=== PATIENT | male | born 1975 | race Caucasian/White ===

== ENCOUNTER → 2018-03-25 | Outpatient (CLI) | payer OTHER ==
[~2018-03-25] MED LIST: OMNIPAQUE 350 MG/ML, 150 ML BOTTLE ONE
== END | disposition home or self-care (01) ==
LOC: CFH 09:25
PROVIDERS: ATTEND Anesthesiology
DX: K57.30 Diverticulosis of large intestine without perforation or abscess without bleeding (principal)
CPT/HCPCS: 74178; 82565; Q9967

== ENCOUNTER 2018-06-17 06:19 | Day surgery (SDC) | payer OTHER ==
[~2018-06-17] VITALS: Ht 175.3 cm; Wt 96.4 kg
[~2018-06-17 06:19] MED LIST changes: +ALLO100T30 PO; +LISI-170 PO; -OMNIPAQUE 350 MG/ML, 150 ML BOTTLE ONE
[2018-06-17 06:58] VITALS: BP 119/87
[2018-06-17] MEDS ORDERED: LACTATED RINGERS 1,000 ML IV SCH (07:00)
[2018-06-17] MEDS ORDERED: PROPOFOL 10 MG/ML, 50ML ONE (08:01)
== END 2018-06-17 10:00 | disposition home or self-care (01) ==
LOC: OUT 06:19
PROVIDERS: ATTEND Colon & Rectal Surgery
DX: K57.92 Diverticulitis of intestine, part unspecified, without perforation or abscess without bleeding (principal); N32.1 Vesicointestinal fistula; K63.2 Fistula of intestine; M10.9 Gout, unspecified; F17.210 Nicotine dependence, cigarettes, uncomplicated; I10 Essential (primary) hypertension; Z72.89 Other problems related to lifestyle
CPT/HCPCS: 45330; J2704; J7120

== ENCOUNTER 2018-06-18 06:08 | Inpatient (IN) | payer OTHER ==
[2018-06-16 10:06] LABS: BASOPHILS # (AUTO) 0.05 x10^3/uL (0-0.1); BASOPHILS % (AUTO) 1 % (0-1); EOSINOPHILS % (AUTO) 1 % (1-7); LYMPHOCYTES # (AUTO) 2.53 x10^3/uL (1-3.4); LYMPHOCYTES % (AUTO) 28 % (22-44); MD NO; MEAN CORPUSCULAR HGB CONC 32.6 g/dL (33.2-36.2); MEAN CORPUSCULAR VOLUME 85.9 fL (81-97); MEAN PLATELET VOLUME 9.3 fL (7.4-10.4); MONOCYTES # (AUTO) 0.93 x10^3/uL (0.2-0.8); MONOCYTES % (AUTO) 10 % (2-9); NEUTROPHILS # (AUTO) 5.45 x10^3/uL (1.8-6.8); NEUTROPHILS % (AUTO) 60 % (42-75); PLATELET COUNT 192 x10^3/uL (130-400); RED BLOOD COUNT 6.15 x10^6/uL (4.38-5.82); RED CELL DISTRIBUTION WIDTH 13.6 % (9.4-14.8)
[2018-06-16 10:12] LABS: ALBUMIN 3.7 g/dL (3.4-5.0); ANION GAP 6 mmol/L (5-15); CALCIUM 10.3 mg/dL (8.5-10.1); CHLORIDE 103 mmol/L (98-107)
[2018-06-16 10:16] LABS: ALANINE AMINOTRANSFERASE 59 U/L (12-78); ALKALINE PHOSPHATASE 84 U/L (45-117); BILIRUBIN,TOTAL 0.4 mg/dL (0.2-1.0); CREATININE 0.91 mg/dL (0.7-1.3); TOTAL PROTEIN 8.5 g/dL (6.4-8.2)
[~2018-06-18] VITALS: Ht 175.3 cm; Wt 96.0 kg
[2018-06-18] MEDS ORDERED: LACTATED RINGERS 1,000 ML IV SCH ×2 (06:25→13:30)
[2018-06-18 06:54] VITALS: BP 131/92
[2018-06-18] MEDS ORDERED: OxyconTIN ER 10 MG TAB.ER PO ONE (07:00)
[2018-06-18] MEDS ORDERED: FAMOTIDINE 20 MG TABLET PO ONE (07:00)
[2018-06-18] MEDS ORDERED: ACETAMINOPHEN 500 MG TABLET PO ONE (07:00)
[2018-06-18] MEDS ORDERED: GABAPENTIN 300 MG CAPSULE PO ONE (07:00)
[2018-06-18] MEDS ORDERED: MIDAZOLAM 1 MG/ML, 2ML ONE (07:01)
[2018-06-18] MEDS ORDERED: FENTANYL PF 250 MCG/5ML ONE (07:01)
[2018-06-18] MEDS ORDERED: ROCURONIUM 10MG/ML,5ML ONE ×2 (07:02→10:00)
[2018-06-18] MEDS ORDERED: DEXAMETHASONE 4 MG/ML, 1ML ONE (07:02)
[2018-06-18] MEDS ORDERED: ONDANSETRON 2MG/ML, 2ML ONE (07:02)
[2018-06-18] MEDS ORDERED: PROPOFOL 10 MG/ML, 20ML ONE (07:02)
[2018-06-18] MEDS ORDERED: INDOCYANINE GREEN 25 MG VIAL ONE (07:13)
[2018-06-18] MEDS ORDERED: FLUORESCEIN SODIUM 500 MG/5 ML ONE (07:13)
[2018-06-18] MEDS ORDERED: BUPIVACAINE/EPI 0.5% 1:200K ONE (07:13)
[2018-06-18] MEDS ORDERED: ONDANSETRON 2MG/ML, 2ML IV PRN ×2 (09:30→13:30)
[2018-06-18] MEDS ORDERED: hydrALAzine 20 MG/ML, 1ML IV PRN (09:30)
[2018-06-18] MEDS ORDERED: LABETALOL 5MG/ML, 20ML IV PRN (09:30)
[2018-06-18] MEDS ORDERED: FENTANYL PF 100 MCG/2ML IV PRN (09:30)
[2018-06-18] MEDS ORDERED: OXYcodone 5 MG/5 ML ORAL.SOL UDC PO PRN (09:30)
[2018-06-18] MEDS ORDERED: MEPERIDINE/PF 25MG/0.5ML IVPush PRN (09:30)
[2018-06-18] MEDS ORDERED: PROMETHAZINE 25 MG/ML, 1ML IV PRN (09:30)
[2018-06-18] MEDS ORDERED: METOPROLOL 1 MG/ML, 5ML IV PRN (09:30)
[2018-06-18] MEDS ORDERED: NEOSTIGMINE 1 MG/ML, 10ML ONE (10:42)
[2018-06-18] MEDS ORDERED: GLYCOPYRROLATE 0.2MG/1ML, 5ML ONE (10:42)
[2018-06-18] MEDS ORDERED: FENTANYL PF 100 MCG/2ML ONE ×2 (10:46→11:23)
[2018-06-18] MEDS ORDERED: hydrALAzine 20 MG/ML, 1ML ONE (10:51)
[2018-06-18] MEDS ORDERED: HYDROmorphone 1 MG/ML, 1ML VIAL ONE (11:23)
[2018-06-18] MEDS: HYDROmorphone 2 MG/ML, 1ML IVPush PRN ×2 (11:38→11:52)
[2018-06-18 12:41] VITALS: BP 138/93
[2018-06-18] MEDS ORDERED: HALOPERIDOL 5 MG/ML IVPush PRN (13:30)
[2018-06-18] MEDS ORDERED: CALCIUM CARBONATE 500 MG TAB.CHEW PO PRN (13:30)
[2018-06-18] MEDS ORDERED: DEXAMETHASONE 4 MG/ML, 1ML IVPush PRN (13:30)
[2018-06-18] MEDS ORDERED: DIPHENHYDRAMINE 50 MG/ML, 1ML IVPush PRN (13:30)
[2018-06-18] MEDS ORDERED: DIPHENHYDRAMINE 25 MG CAPSULE PO PRN (13:30)
[2018-06-18] MEDS ORDERED: SCOPOLAMINE PATCH, 1.5MG PATCH.TD72 TD PRN (13:30)
[2018-06-18] MEDS ORDERED: OXYcodone IR 5MG TABLET PO PRN (13:30)
[2018-06-18] MEDS: KETOROLAC 30 MG/1 ML IVPush SCH ×2 (13:30→20:04)
[2018-06-18] MEDS ORDERED: LORazepam 2 MG/ML, 1ML IVPush PRN (13:30)
[2018-06-18] MEDS ORDERED: LORazepam 1MG TABLET PO PRN (13:30)
[2018-06-18] MEDS ORDERED: TRAZODONE 50MG TABLET PO PRN (13:30)
[2018-06-18] MEDS ORDERED: MORPHINE SULFATE 4 MG/ML, 1ML IVPush PRN (13:30)
[2018-06-18] MEDS: ACETAMINOPHEN 500 MG TABLET PO SCH ×2 (13:30→20:04)
[2018-06-18] MEDS: PIPERACILLIN/TAZO/PMX 3.375GM 50 ML IV SCH ×2 (16:09→20:04)
[2018-06-18 19:59] VITALS: BP 142/95
[2018-06-18] MEDS: LISINOPRIL 20 MG TABLET PO SCH (20:05)
[2018-06-19 00:06] VITALS: BP 125/77
[2018-06-19] MEDS: KETOROLAC 30 MG/1 ML IVPush SCH ×4 (02:32→20:52)
[2018-06-19] MEDS: PIPERACILLIN/TAZO/PMX 3.375GM 50 ML IV SCH ×4 (02:32→20:52)
[2018-06-19] MEDS: ACETAMINOPHEN 500 MG TABLET PO SCH ×4 (02:32→20:52)
[2018-06-19 04:01] LABS: BASOPHILS # (AUTO) 0.04 x10^3/uL (0-0.1); BASOPHILS % (AUTO) 0 % (0-1); EOSINOPHILS # (AUTO) 0.04 x10^3/uL (0-0.4); EOSINOPHILS % (AUTO) 0 % (1-7); LYMPHOCYTES # (AUTO) 2.11 x10^3/uL (1-3.4); LYMPHOCYTES % (AUTO) 16 % (22-44); MD NO; MEAN CORPUSCULAR HEMOGLOBIN 28.4 pg (27.5-34.5); MEAN CORPUSCULAR HGB CONC 32.6 g/dL (33.2-36.2); MEAN CORPUSCULAR VOLUME 87.2 fL (81-97); MEAN PLATELET VOLUME 9.7 fL (7.4-10.4); MONOCYTES # (AUTO) 0.94 x10^3/uL (0.2-0.8); MONOCYTES % (AUTO) 7 % (2-9); NEUTROPHILS # (AUTO) 10.01 x10^3/uL (1.8-6.8); NEUTROPHILS % (AUTO) 76 % (42-75); PLATELET COUNT 174 x10^3/uL (130-400); RED BLOOD COUNT 5.19 x10^6/uL (4.38-5.82); RED CELL DISTRIBUTION WIDTH 13.7 % (9.4-14.8)
[2018-06-19 04:03] LABS: ANION GAP 7 mmol/L (5-15); CALCIUM 7.3 mg/dL (8.5-10.1); CHLORIDE 106 mmol/L (98-107)
[2018-06-19 04:05] LABS: CREATININE 1.15 mg/dL (0.7-1.3)
[2018-06-19 04:16] VITALS: BP 130/76
[2018-06-19 07:31] VITALS: BP 121/85
[2018-06-19] MEDS: LISINOPRIL 20 MG TABLET PO SCH ×2 (08:55→20:51)
[2018-06-19] MEDS: ALLOPURINOL 100 MG TABLET PO SCH (08:57)
[2018-06-19] MEDS: ENOXAPARIN 40 MG/0.4 ML SQ SCH (09:01)
[2018-06-19] MEDS ORDERED: MAGNESIUM SULFATE PMX 2GM/50ML 50 ML IVPB ONE (10:00)
[2018-06-19] MEDS ORDERED: OXYC-302 PO (10:21)
[2018-06-19] MEDS ORDERED: AMOX1TAB64 PO (10:21)
[2018-06-19 14:09] VITALS: BP 137/87
[2018-06-19 21:05] VITALS: BP 138/81
[2018-06-20] MEDS: KETOROLAC 30 MG/1 ML IVPush SCH ×2 (02:30→07:50)
[2018-06-20] MEDS: ACETAMINOPHEN 500 MG TABLET PO SCH ×2 (02:30→07:42)
[2018-06-20] MEDS: PIPERACILLIN/TAZO/PMX 3.375GM 50 ML IV SCH ×2 (02:30→08:38)
[2018-06-20 02:55] VITALS: BP 150/91
[2018-06-20 04:37] LABS: BASOPHILS # (AUTO) 0.03 x10^3/uL (0-0.1); BASOPHILS % (AUTO) 0 % (0-1); CALCIUM 7.8 mg/dL (8.5-10.1); CHLORIDE 109 mmol/L (98-107); EOSINOPHILS # (AUTO) 0.11 x10^3/uL (0-0.4); EOSINOPHILS % (AUTO) 1 % (1-7); LYMPHOCYTES # (AUTO) 2.15 x10^3/uL (1-3.4); LYMPHOCYTES % (AUTO) 21 % (22-44); MD NO; MEAN CORPUSCULAR HEMOGLOBIN 29.1 pg (27.5-34.5); MEAN CORPUSCULAR HGB CONC 33.6 g/dL (33.2-36.2); MEAN CORPUSCULAR VOLUME 86.4 fL (81-97); MEAN PLATELET VOLUME 9.6 fL (7.4-10.4); MONOCYTES # (AUTO) 0.69 x10^3/uL (0.2-0.8); MONOCYTES % (AUTO) 7 % (2-9); NEUTROPHILS # (AUTO) 7.24 x10^3/uL (1.8-6.8); NEUTROPHILS % (AUTO) 71 % (42-75); PLATELET COUNT 143 x10^3/uL (130-400); RED BLOOD COUNT 5.04 x10^6/uL (4.38-5.82); RED CELL DISTRIBUTION WIDTH 14.1 % (9.4-14.8)
[2018-06-20 04:40] LABS: ANION GAP 6 mmol/L (5-15); CREATININE 0.94 mg/dL (0.7-1.3)
[2018-06-20 07:24] VITALS: BP 157/111
[2018-06-20] MEDS: ALLOPURINOL 100 MG TABLET PO SCH (07:41)
[2018-06-20] MEDS: LISINOPRIL 20 MG TABLET PO SCH (07:43)
[2018-06-20] MEDS: ENOXAPARIN 40 MG/0.4 ML SQ SCH (07:44)
== END 2018-06-20 13:43 | disposition home or self-care (01) | DRG 330 ==
LOC: ORIP 06:08 → EDSTATUS 07:30 → 4NOR 12:32
PROVIDERS: ADMIT Colon & Rectal Surgery; ATTEND Colon & Rectal Surgery
PROC: 0DBN4ZZ Excision of Sigmoid Colon, Percutaneous Endoscopic Approach (ICD-10-PCS; 2018-06-18)
PROC: 8E0W4CZ Robotic Assisted Procedure of Trunk Region, Percutaneous Endoscopic Approach (ICD-10-PCS; 2018-06-18)
PROC: 0DBP4ZZ Excision of Rectum, Percutaneous Endoscopic Approach (ICD-10-PCS; principal; 2018-06-18 07:30)
DX: K57.32 Diverticulitis of large intestine without perforation or abscess without bleeding (principal); N32.1 Vesicointestinal fistula; E66.9 Obesity, unspecified; Z68.31 Body mass index [BMI] 31.0-31.9, adult; I10 Essential (primary) hypertension; G47.33 Obstructive sleep apnea (adult) (pediatric); M10.9 Gout, unspecified; F17.200 Nicotine dependence, unspecified, uncomplicated; Z82.49 Family history of ischemic heart disease and other diseases of the circulatory system; Z83.3 Family history of diabetes mellitus; Z88.0 Allergy status to penicillin
CPT/HCPCS: 36415; J3490; 80048; 80053; 83735; 85025; 86850; 86900; 88305; 88307; 93005; G0378; J1100; J1170; J1650; J1885; J2250; J2405; J2543; J2704; J2710; J3010; J0360; J3475; J7120; Q0163

== ENCOUNTER 2019-05-14 16:13 | Outpatient (CLI) | payer OTHER ==
[~2019-05-14 16:13] MED LIST changes: +AMOX1TAB64 PO; +OXYC-302 PO
== END 2019-05-14 23:59 | disposition home or self-care (01) ==
LOC: RAD 16:13
PROVIDERS: ATTEND Family Medicine
DX: F17.200 Nicotine dependence, unspecified, uncomplicated (principal)
CPT/HCPCS: 71046

== ENCOUNTER 2019-05-24 10:41 | Inpatient (IN) | payer OTHER ==
[~2019-05-24] VITALS: Ht 175.3 cm; Wt 103.6 kg
--- NOTE | 2019-05-24 10:54 | NUR ---
PATIENT WENT TO HIS MD BUTT TODAY FOR A GENERAL CHECK UP AND MD SENT HIM HERE FOR HYPOTENTION, FEVER, BODY ACHES, AND SOB. AFEBRILE BUT TOOK IBUPROFEN AT MD. HYPOTENSIVE, WEAK. ROOMED IMMIDIATELY NOTIFIED .
--- NOTE | 2019-05-24 11:10 | NUR ---
LATE ENTRY: PT SENT SENT FROM FOR HYPOTENSION. PT HYPOTENSIVE IN TRIAGE. IS CURRENTLY BEING TREATED FOR UTI WITH ABX. 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 PT SAYS THAT HIS "URINE SMELLS LIKE POOP SOMETIMES". EKG DONE, UA SENT, LABS DRAWN. MD BEDSIDE. BOLUS LIETS OF NS INFUSING AT THIS TIME.
[2019-05-24] MEDS ORDERED: SODIUM CHLORIDE FLUSH 10ML SYR IVF ONE (11:30)
[2019-05-24] MEDS ORDERED: SODIUM CHLORIDE 0.9% 1,000ML IVBOLUS ONE ×3 (11:30→13:00)
--- NOTE | 2019-05-24 11:48 | NUR ---
FIRST BOLUS COMPLETE. BP HAS IMPROVED. MD NOTIFIED. SECOND BOLUS INFUSING AT THIS TIME
[2019-05-24 11:54] LABS: MEAN CORPUSCULAR HEMOGLOBIN 29.2 pg (27.5-34.5); MEAN CORPUSCULAR HGB CONC 33.6 g/dL (33.2-36.2); MEAN CORPUSCULAR VOLUME 86.9 fL (81-97); MEAN PLATELET VOLUME 9.8 fL (7.4-10.4); PLATELET COUNT 190 x10^3/uL (130-400); RED BLOOD COUNT 5.47 x10^6/uL (4.38-5.82); RED CELL DISTRIBUTION WIDTH 15.2 % (9.4-14.8)
[2019-05-24 12:03] LABS: MICROSCOPIC INDICATED
[2019-05-24 12:04] LABS: CULTURE INDICATED? YES
[2019-05-24 12:05] LABS: ALANINE AMINOTRANSFERASE 57 U/L (12-78); ALBUMIN 2.7 g/dL (3.4-5.0); ANION GAP 12 mmol/L (5-15); CALCIUM 8.7 mg/dL (8.5-10.1); CHLORIDE 95 mmol/L (98-107); CREATININE 1.74 mg/dL (0.7-1.3)
[2019-05-24 12:08] LABS: ALKALINE PHOSPHATASE 175 U/L (45-117); CREATINE KINASE, TOTAL 220 U/L (39-308); TOTAL PROTEIN 7.1 g/dL (6.4-8.2)
[2019-05-24 12:29] LABS: MD YES
[2019-05-24 12:31] LABS: <RBC MORPHOLOGY> NORMAL; BANDS%(MANUAL) 45 % (0-7); LYMPH#(MANUAL) 0.45 x10^3/uL (1-3.4); LYMPHS% (MANUAL) 3 % (22-44); METAMYELOCYTES% (MANUAL) 2 % (0-1); MONOS#(MANUAL) 0.15 x10^3/uL (0.3-2.7); MONOS% (MANUAL) 1 % (2-9); SEGS% (MANUAL) 49 % (42-75)
[2019-05-24 12:32] LABS: <PLATELET ESTIMATE> ADEQUATE; <PLT MORPHOLOGY> NORMAL PLT MORPH; PMNS WITH VACUOLES 1+; TOXIC GRAN 1+
--- NOTE | 2019-05-24 12:49 | NUR ---
PT REMAINIG HYPOTENSIVE AFTER 2 LITERS. NOTIFIED. 3RD LITER IS INFUSING NOW.
--- NOTE | 2019-05-24 12:49 | NUR ---
CENTRAL LINE CART HAS BEEN PLACED OUTSDIE OF ROOM
[2019-05-24] MEDS ORDERED: VANCOMYCIN PER PHARMACY MC PRN ×2 (13:00→16:00)
[2019-05-24] MEDS ORDERED: ERTAPENEM 1 GM in SODIUM CHLORIDE 0.9% 50 ML IV SCH (13:00)
[2019-05-24] MEDS ORDERED: PHARMACOKINETIC MONITORING MC PRN (13:30)
[2019-05-24] MEDS ORDERED: PHARMACOKINETIC CONSULTATION MC ONE (13:30)
--- NOTE | 2019-05-24 13:44 | NUR ---
PT RESTING IN [facility]. PT EDCUATED ON PLAN OF CARE.
--- NOTE | 2019-05-24 13:55 | NUR ---
PT TP CT AT THIS TIME
[2019-05-24] MEDS: VANCOMYCIN 2,000 MG in SODIUM CHLORIDE 0.9% 500 ML IV SCH (14:10)
[2019-05-24] MEDS ORDERED: OMNIPAQUE 350 MG/ML, 100ML BOTTLE ONE (14:11)
[2019-05-24] MEDS ORDERED: DIAZEPAM 5 MG/ML, 2ML IV ONE (14:30)
[2019-05-24] MEDS ORDERED: MAGNESIUM SULFATE PMX 4GM/100M 100 ML IV ONE (14:30)
[2019-05-24] MEDS ORDERED: NOREPINEPHRINE 8 MG in SODIUM CHLORIDE 0.9% 242 ML IV PRN ×2 (14:30→16:00)
[2019-05-24] MEDS ORDERED: HYDROCORTISONE 100 MG INJ. IVPush ONE (14:30)
[2019-05-24] MEDS ORDERED: MAGNESIUM SULFATE PMX 2GM/50ML 50 ML IV ONE (14:30)
[2019-05-24] MEDS ORDERED: FENTANYL PF 100 MCG/2ML ONE (14:44)
[2019-05-24 15:15] LABS: FREE T4 (FREE THYROXINE) 1.4 ng/dL (0.76-1.46)
[2019-05-24] MEDS ORDERED: FENTANYL PF 100 MCG/2ML IVPush ONE (15:30)
--- NOTE | 2019-05-24 15:52 | NUR ---
PT RESTING IN [facility]. CENTRAL LINE HAS BEEN INSERTED. BP MEDICATION INFUSING. IMRPOVEMENT IN BP. AWAITING ROOM FOR ADMIT
[2019-05-24] MEDS: SODIUM CHLORIDE 0.9% 1,000 ML IV SCH ×2 (15:57→21:13)
[2019-05-24] MEDS ORDERED: ACETAMINOPHEN 325 MG TABLET PO PRN (16:00)
[2019-05-24] MEDS ORDERED: ONDANSETRON 2MG/ML, 2ML IVPush PRN (16:00)
[2019-05-24] MEDS ORDERED: POLYETHYLENE GLYCOL 17 GM PACKET PO PRN (16:00)
[2019-05-24] MEDS ORDERED: BISACODYL 10 MG SUPP PR PRN (16:00)
[2019-05-24] MEDS: MEROPENEM 1 GM in SODIUM CHLORIDE 0.9% 100 ML IV SCH ×2 (17:33→22:26)
[2019-05-24 18:38] LABS: RAPID INFLUENZA A Negative (Negative); RAPID INFLUENZA B Negative (Negative)
[2019-05-24] MEDS: ENOXAPARIN 40 MG/0.4 ML SQ SCH (19:42)
[2019-05-25] MEDS: SODIUM CHLORIDE 0.9% 1,000 ML IV SCH ×4 (03:53→23:14)
[2019-05-25 04:00] VITALS: BP 127/79
[2019-05-25 04:29] LABS: ANION GAP 8 mmol/L (5-15); CALCIUM 7.6 mg/dL (8.5-10.1); CHLORIDE 108 mmol/L (98-107)
[2019-05-25 04:31] LABS: MEAN CORPUSCULAR HEMOGLOBIN 28.7 pg (27.5-34.5); MEAN CORPUSCULAR HGB CONC 33.4 g/dL (33.2-36.2); MEAN CORPUSCULAR VOLUME 85.8 fL (81-97); MEAN PLATELET VOLUME 9.5 fL (7.4-10.4); PLATELET COUNT 192 x10^3/uL (130-400); RED BLOOD COUNT 4.43 x10^6/uL (4.38-5.82); RED CELL DISTRIBUTION WIDTH 15.5 % (9.4-14.8)
[2019-05-25 04:32] LABS: ALANINE AMINOTRANSFERASE 43 U/L (12-78); ALKALINE PHOSPHATASE 120 U/L (45-117); BILIRUBIN,TOTAL 1.3 mg/dL (0.2-1.0); TOTAL PROTEIN 5.9 g/dL (6.4-8.2)
[2019-05-25] MEDS: MEROPENEM 1 GM in SODIUM CHLORIDE 0.9% 100 ML IV SCH ×3 (05:52→22:30)
[2019-05-25 06:17] LABS: MD YES
[2019-05-25 06:18] LABS: BAND#(MANUAL) 1.39 x10^3/uL; BANDS%(MANUAL) 11 % (0-7); LYMPH#(MANUAL) 1.51 x10^3/uL (1-3.4); LYMPHS% (MANUAL) 12 % (22-44); MONOS#(MANUAL) 0.13 x10^3/uL (0.3-2.7); MONOS% (MANUAL) 1 % (2-9); SEG#(MANUAL) 9.58 x10^3/uL (1.8-6.8); SEGS% (MANUAL) 76 % (42-75)
[2019-05-25 06:19] LABS: <PLATELET ESTIMATE> ADEQUATE; <PLT MORPHOLOGY> NORMAL PLT MORPH; <RBC MORPHOLOGY> NORMAL
[2019-05-25] MEDS: SENNA/DOCUSATE TABLET PO SCH (08:04)
[2019-05-25] MEDS: THIAMINE 200 MG in SODIUM CHLORIDE 0.9% 50 ML IV SCH (08:25)
[2019-05-25] MEDS ORDERED: CHLORDIAZEPOXIDE 25 MG CAPSULE ONE (12:22)
[2019-05-25] MEDS: CHLORDIAZEPOXIDE 25 MG CAPSULE PO SCH ×3 (12:28→21:20)
[2019-05-25] MEDS ORDERED: LORazepam 2 MG/ML, 1ML IVPush PRN (12:30)
[2019-05-25] MEDS: VANCOMYCIN 2,000 MG in SODIUM CHLORIDE 0.9% 500 ML IV SCH (13:17)
[2019-05-25] MEDS: ENOXAPARIN 40 MG/0.4 ML SQ SCH (20:01)
[2019-05-26] MEDS: VANCOMYCIN 2,000 MG in SODIUM CHLORIDE 0.9% 500 ML IV SCH ×2 (00:54→12:55)
[2019-05-26 04:00] VITALS: BP 146/96
[2019-05-26] MEDS: MEROPENEM 1 GM in SODIUM CHLORIDE 0.9% 100 ML IV SCH (05:44)
[2019-05-26] MEDS: CHLORDIAZEPOXIDE 25 MG CAPSULE PO SCH ×3 (08:29→21:20)
[2019-05-26] MEDS: THIAMINE 200 MG in SODIUM CHLORIDE 0.9% 50 ML IV SCH (08:29)
[2019-05-26] MEDS: SENNA/DOCUSATE TABLET PO SCH (08:29)
[2019-05-26] MEDS ORDERED: OMNIPAQUE 350 MG/ML, 75ML BOTTLE ONE (09:43)
[2019-05-26 14:00] VITALS: BP 146/89
[2019-05-26] MEDS ORDERED: LEVOFLOXACIN 750 MG TABLET PO SCH (15:00)
[2019-05-26] MEDS: ENOXAPARIN 40 MG/0.4 ML SQ SCH (17:04)
[2019-05-26 19:12] VITALS: BP 111/78
[2019-05-27 01:02] VITALS: BP 134/80
[2019-05-27 06:50] VITALS: BP 158/72
[2019-05-27] MEDS: SENNA/DOCUSATE TABLET PO SCH (09:00)
[2019-05-27] MEDS: CHLORDIAZEPOXIDE 25 MG CAPSULE PO SCH (09:26)
[2019-05-27] MEDS: THIAMINE 200 MG in SODIUM CHLORIDE 0.9% 50 ML IV SCH (10:04)
[2019-05-27] MEDS ORDERED: LEVO750T26 PO (10:54)
[2019-05-27 11:41] VITALS: BP 127/88
== END 2019-05-27 12:23 | disposition home or self-care (01) | DRG 871 ==
LOC: ED 11:44 → EDIP 14:20 → ICU 16:35 → 3N 05-26 10:39
PROVIDERS: ADMIT Internal Medicine; ATTEND Internal Medicine
DX: A41.9 Sepsis, unspecified organism (principal); E43 Unspecified severe protein-calorie malnutrition; J18.9 Pneumonia, unspecified organism; J96.01 Acute respiratory failure with hypoxia; N17.0 Acute kidney failure with tubular necrosis; R65.21 Severe sepsis with septic shock; E87.1 Hypo-osmolality and hyponatremia; E87.2 Acidosis; D73.5 Infarction of spleen; E03.9 Hypothyroidism, unspecified; E11.9 Type 2 diabetes mellitus without complications; E83.42 Hypomagnesemia; F10.10 Alcohol abuse, uncomplicated; E66.9 Obesity, unspecified; I10 Essential (primary) hypertension; J40 Bronchitis, not specified as acute or chronic; M10.9 Gout, unspecified; Z82.49 Family history of ischemic heart disease and other diseases of the circulatory system; Z83.3 Family history of diabetes mellitus; Z87.440 Personal history of urinary (tract) infections; Z88.0 Allergy status to penicillin; Z68.33 Body mass index [BMI] 33.0-33.9, adult; Z79.84 Long term (current) use of oral hypoglycemic drugs
CPT/HCPCS: 36415; 36556; 71045; 71275; 74177; 80053; 80307; 81001; 82533; 82550; 83036; 83605; 83735; 84145; 84439; 84443; 85025; 85651; 86140; 87040; 87081; 87086; 87400; 93005; 93306; 96361; 96365; G0378; J1335; J1650; J2185; J3010; J3370; J3411; Q9967; J2060; J3475; J7030; J7040; J7050

== ENCOUNTER 2020-09-01 09:58 | Emergency (ER) | payer OTHER ==
[~2020-09-01] VITALS: Ht 175.3 cm; Wt 99.7 kg
[~2020-09-01 09:58] MED LIST changes: +LEVO750T26 PO; -OXYC-302 PO; +OXYC1TAB14 PO
[2020-09-01 10:00] VITALS: BP 140/88
[2020-09-01 11:03] LABS: BASOPHILS % (AUTO) 1 % (0-1); EOSINOPHILS % (AUTO) 1 % (1-7); LYMPHOCYTES % (AUTO) 21 % (22-44); MEAN CORPUSCULAR HGB CONC 34.3 g/dL (33.2-36.2); MEAN PLATELET VOLUME 9.3 fL (7.4-10.4); MONOCYTES % (AUTO) 9 % (2-9); NEUTROPHILS % (AUTO) 69 % (42-75); PLATELET COUNT 150 x10^3/uL (130-400); RED BLOOD COUNT 4.67 x10^6/uL (4.38-5.82); RED CELL DISTRIBUTION WIDTH 13.6 % (9.4-14.8)
[2020-09-01 11:13] LABS: ALANINE AMINOTRANSFERASE 72 U/L (12-78); ALBUMIN 3.4 g/dL (3.4-5.0); ANION GAP 11 mmol/L (5-15); CALCIUM 8.6 mg/dL (8.5-10.1); CHLORIDE 102 mmol/L (98-107); CREATININE 0.82 mg/dL (0.7-1.3)
[2020-09-01 11:15] LABS: ALKALINE PHOSPHATASE 82 U/L (45-117); BILIRUBIN,TOTAL 0.9 mg/dL (0.2-1.0); TOTAL PROTEIN 7.7 g/dL (6.4-8.2)
--- NOTE | 2020-09-01 11:49 | NUR ---
PT REFUSED CRUTCHES. KNEE IMMOBILIZER APPLIED.
== END 2020-09-01 12:00 | disposition home or self-care (01) ==
LOC: ED 11:14
DX: M13.161 Monoarthritis, not elsewhere classified, right knee (principal); M25.461 Effusion, right knee; E11.9 Type 2 diabetes mellitus without complications; F17.200 Nicotine dependence, unspecified, uncomplicated; Z88.0 Allergy status to penicillin
CPT/HCPCS: 29505; 36415; 80053; 84550; 85025; 99284

== ENCOUNTER 2020-09-03 18:01 | Emergency (ER) | payer OTHER ==
[~2020-09-03] VITALS: Ht 175.3 cm; Wt 103.7 kg
[2020-09-03 18:05] VITALS: BP 106/70
[2020-09-03] MEDS ORDERED: LIDOCAINE-MPF 1%, 5ML ONE ×2 (19:34→20:08)
--- NOTE | 2020-09-03 19:53 | NUR ---
SUPPLIES FOR ARTHROCENTESIS SET UP BY TASK RN.
[2020-09-03] MEDS ORDERED: LIDOCAINE 1%, 10ML INFIL ONE (20:00)
[2020-09-03] MEDS ORDERED: LIDOCAINE-MPF 1%, 5ML INFIL ONE (20:00)
--- NOTE | 2020-09-03 21:29 | NUR ---
PTs RIGHT KNEE WRAPPED AND PT OWN KNEE IMMOBILIZER APPLIED. CRUTCHES PROVIDED.
== END 2020-09-03 22:30 | disposition home or self-care (01) ==
LOC: ED 21:18
DX: M13.161 Monoarthritis, not elsewhere classified, right knee (principal); M25.561 Pain in right knee; M25.461 Effusion, right knee; I10 Essential (primary) hypertension; E11.9 Type 2 diabetes mellitus without complications; F17.210 Nicotine dependence, cigarettes, uncomplicated
CPT/HCPCS: 20610; 82945; 83615; 84157; 84560; 85810; 87070; 87205; 89050; 89060; 99406